=== PATIENT | female | born 1960 | race Caucasian/White ===

== ENCOUNTER 2020-01-20 14:42 | Outpatient (CLI) | payer OTHER ==
--- NOTE | 2020-01-20 16:22 | RAD ---
TWO VIEWS OF THE LUMBAR SPINE: 01/20/20 HISTORY: Disability exam. FINDINGS: Five lumbar type vertebral bodies are present with intact pedicles on frontal imaging. There is disc space narrowing with degenerative end plate change as well as anterior and posterior osteophyte at L3 -4 and L4-5. Multilevel lower lumbar spine facet hypertrophic change. There is atherosclerotic calcif ication of the abdominal aorta. No displaced fracture seen. IMPRESSION: Multilevel lower lumbar spine degenerative change as detailed above. POS: [facility]
== END 2020-01-20 14:43 | disposition home or self-care (01) ==
LOC: BICRAD 14:42
PROVIDERS: ATTEND Internal Medicine
DX: Z02.71 Encounter for disability determination (principal); M47.816 Spondylosis without myelopathy or radiculopathy, lumbar region
CPT/HCPCS: 72100

== ENCOUNTER 2020-02-16 00:13 | Emergency (ER) | payer SELFPAY ==
[2020-02-16] MEDS ORDERED: Ketorolac Tromethamine 30 MG/ML VIAL ONE (00:51)
--- NOTE | 2020-02-16 08:50 | CT ---
PRELIMINARY REPORT/[facility]/EMERGENCY AFTER HOURS PROCEDURE: EXAM: CT Maxillofacial Without Intravenous Contrast. CLINICAL HISTORY: PT FELL AFTER SLIPPING ON WATER. PT DENIES LOC. PT'S RIGHT SIDE OF THE FACE IS VERY SWOLLEN, BLACK AN D BLUE. TECHNIQUE: Axial computed tomography images of the face without intravenous contrast. Sagittal and coronal refor mations performed. CONTRAST: Without COMPARISON: None provided. FINDINGS: BONES: Chronic appearing fracture of the right medial orbital wall/lamina papyracea with herniation of extra conal fat and deviation of the medial rectus muscle. The mandible is intact. Degenerative changes o f the cervical spine most pronounced at C5-6. SOFT TISSUES: Right periorbital soft tissue hematoma. Right pre-maxillary facial contusion/hematoma. SINUSES: Completely opacified right maxillary sinus with surrounding osteitis. Small air-fluid level in the l eft maxillary sinus with superimposed mucosal wall and osteitis. The nasal septum is missing. Opaci fication of the ethmoid sinuses. Mucosal wall thickening and hyperdense opacification of the sphenoi d sinuses. Postsurgical changes of the maxillary sinuses and nasal passageway ORBITS: The orbits are normal. No retrobulbar hematoma or mass. IMPRESSION: 1. Right periorbital and facial soft tissue hematoma. No retrobulbar hematoma or abnormal CT appear ance of the globe. 2. Chronic appearing fracture of the right medial orbital wall/lamina papyracea fracture with hernia tion of extraconal fat and medial deviation of the adjacent medial rectus muscle. Correlate for musc ular entrapment 3. Pansinus mucosal disease with complete opacification of the right maxillary sinus. Small amount of hyperdense material likely representing inspissated secretions or fungal disease with superimposed chronic sinusitis. 4. Postsurgical changes of the sinuses and nasal passageway. ELECTRONICALLY SIGNED BY: Satish Mix DO Feb 16, 2020 1:30:59 AM TECHNICAL ARTIST This report is intended for review by the ordering physician only, in accordance of law. If you recei ve this report in error, please call [facility] at [phone]. FINAL REPORT EMERGENT AFTER HOURS CT OF THE FACE WITHOUT CONTRAST: FINDINGS/IMPRESSION: I agree with the findings and impression given in the preliminary report per [facility] physici an. There is severe diffuse sinus disease. There appears to be remote dehiscence of the right media l orbital wall. No acute facial fracture is identified. POS: [facility]
== END 2020-02-16 02:02 | disposition home or self-care (01) ==
LOC: ERS 00:13
DX: S00.83XA Contusion of other part of head, initial encounter (principal); W01.0XXA Fall on same level from slipping, tripping and stumbling without subsequent striking against object, initial encounter
CPT/HCPCS: 70486; 96372; J1885

== ENCOUNTER 2020-10-07 04:02 | Emergency (ER) | payer OTHER, SELFPAY ==
[2020-10-07] MEDS ORDERED: Lidocaine 1% w/Epinephrine 1:100K 20 ML VIAL ONE (04:28)
[2020-10-07] MEDS ORDERED: Boostrix 0.5 ML (Tdap) VIAL ONE (04:30)
[2020-10-07] MEDS ORDERED: Bacitracin 1 PK ONE (06:15)
== END 2020-10-07 06:41 | disposition home or self-care (01) ==
LOC: ERS 04:02
DX: S62.633A Displaced fracture of distal phalanx of left middle finger, initial encounter for closed fracture (principal); S01.81XA Laceration without foreign body of other part of head, initial encounter; E78.00 Pure hypercholesterolemia, unspecified; I10 Essential (primary) hypertension; F17.210 Nicotine dependence, cigarettes, uncomplicated; Z23 Encounter for immunization; W01.198A Fall on same level from slipping, tripping and stumbling with subsequent striking against other object, initial encounter
CPT/HCPCS: 12013; 70450; 72125; 90471; 90715

== ENCOUNTER 2022-03-19 13:38 | Emergency (ER) | payer SELFPAY ==
[2022-03-19] MEDS ORDERED: Ketorolac Tromethamine 30 MG/ML VIAL ONE (15:23)
[2022-03-19] MEDS ORDERED: Acetaminophen/Codeine 30-300mg Tablet ONE (16:57)
[2022-03-19] MEDS ORDERED: predniSONE 20 MG TAB ONE (16:58)
== END 2022-03-19 17:02 | disposition home or self-care (01) ==
LOC: ERS 13:38
DX: M54.41 Lumbago with sciatica, right side (principal); I10 Essential (primary) hypertension; E78.5 Hyperlipidemia, unspecified; Z79.899 Other long term (current) drug therapy; F17.210 Nicotine dependence, cigarettes, uncomplicated
CPT/HCPCS: 72100; 72170; 72220; 96372; J1885; J7512

== ENCOUNTER 2022-08-16 14:20 | Outpatient (CLI) | payer OTHER | END 2022-08-16 14:21 | disposition home or self-care (01) | LOC: TBSIIMAG 14:20 | PROVIDERS: ATTEND Neurological Surgery | DX: M47.12 Other spondylosis with myelopathy, cervical region (principal); E04.1 Nontoxic single thyroid nodule; J34.89 Other specified disorders of nose and nasal sinuses | CPT/HCPCS: 72141 ==

== ENCOUNTER 2022-09-18 10:20 | Outpatient (CLI) | payer BC, OTHER ==
[~2022-09-18 10:20] MED LIST: Iopamidol 370 76% 100 ML VIAL ONE; Magnevist 469MG/ML 20 ML VIAL ONE
== END 2022-09-18 10:21 | disposition home or self-care (01) ==
LOC: CT 10:20
PROVIDERS: ATTEND Physician Assistant
DX: G95.9 Disease of spinal cord, unspecified (principal); M51.36 Other intervertebral disc degeneration, lumbar region; M51.37 Other intervertebral disc degeneration, lumbosacral region
CPT/HCPCS: 71260; 72158; 74177; 82565; A9579; Q9967

== ENCOUNTER 2022-10-07 09:09 | Day surgery (SDC) | payer BC ==
[2022-10-04 14:48] VITALS: BMI 23.2
[2022-10-07] MEDS ORDERED: Lidocaine 1% MPF 2 ML VIAL ONE (10:48)
[2022-10-07] MEDS ORDERED: CEFAZOLIN 2 GM VIAL ONE (10:48)
[2022-10-07] MEDS ORDERED: Sodium Chloride 0.9% 100 ML ONE (10:49)
[2022-10-07] MEDS ORDERED: Vancomycin 1 GM VIAL ONE (10:57)
[2022-10-07] MEDS ORDERED: Esmolol 100 MG/10 ML VIAL ONE (13:26)
[2022-10-07] MEDS ORDERED: Lidocaine 1% PF 5 ML VIAL ONE (13:26)
[2022-10-07] MEDS ORDERED: NEOSTIGMINE 3 MG/3 ML SYR 3 MG/3 ML SYRINGE ONE (13:26)
[2022-10-07] MEDS ORDERED: PHENYLEPHRINE-NS 100 MCG/ML 10 ML SYRINGE ONE (13:26)
[2022-10-07] MEDS ORDERED: Ondansetron PF 4 MG/2 ML Vial ONE (13:26)
[2022-10-07] MEDS ORDERED: Albuterol HFA (OR) 200 PUFF INH ONE ×2 (13:26→14:25)
[2022-10-07] MEDS ORDERED: Dexamethasone 20 MG/5 ML VIAL ONE (13:26)
[2022-10-07] MEDS ORDERED: PROPOFOL 200 MG/20 ML VIAL ONE (13:26)
[2022-10-07] MEDS ORDERED: Rocuronium Bromide 10 MG/ML (10ML VIAL) ONE (13:26)
[2022-10-07] MEDS ORDERED: Glycopyrrolate 0.2 MG/ML 5 ML SYRINGE ONE (13:26)
[2022-10-07] MEDS ORDERED: fentaNYL 50 mcg/mL 1 mL Vial ONE ×4 (13:27→14:36)
[2022-10-07] MEDS ORDERED: SUGAMMADEX SODIUM 200 MG/2 ML VIAL ONE (14:26)
[2022-10-07] MEDS ORDERED: HYDROmorphone 0.5 MG/0.5 ML SYRINGE ONE (14:50)
[2022-10-07] MEDS ORDERED: HYDROcodone/Acetaminophen 5/325 mg Tablet ONE (15:53)
== END 2022-10-07 17:05 | disposition home or self-care (01) ==
LOC: SDC 09:09
PROVIDERS: ATTEND Neurological Surgery
PROC: 01NB0ZZ Release Lumbar Nerve, Open Approach (ICD-10-PCS; principal; 2022-10-07)
DX: M48.062 Spinal stenosis, lumbar region with neurogenic claudication (principal); I10 Essential (primary) hypertension; E78.5 Hyperlipidemia, unspecified; F32.A Depression, unspecified
CPT/HCPCS: J1100; J1170; J2405; J2704; J3010; J3370; J3490

== ENCOUNTER 2022-12-06 14:11 | Outpatient (CLI) | payer BC | END 2022-12-06 14:12 | disposition home or self-care (01) | LOC: BICMAMMO 14:11 | PROVIDERS: ATTEND Student in an Organized Health Care Education/Training Program | DX: Z12.31 Encounter for screening mammogram for malignant neoplasm of breast (principal) | CPT/HCPCS: 77063; 77067 ==

== ENCOUNTER 2023-06-27 09:54 | Outpatient (CLI) | payer BC | END 2023-06-27 09:55 | disposition home or self-care (01) | LOC: SCSMRI 09:54 | PROVIDERS: ATTEND Neurological Surgery | DX: M48.062 Spinal stenosis, lumbar region with neurogenic claudication (principal); M47.816 Spondylosis without myelopathy or radiculopathy, lumbar region; M47.815 Spondylosis without myelopathy or radiculopathy, thoracolumbar region; M47.817 Spondylosis without myelopathy or radiculopathy, lumbosacral region; Z98.890 Other specified postprocedural states | CPT/HCPCS: 72158; 82565 ==

== ENCOUNTER 2024-03-26 09:08 | Outpatient (CLI) | payer BC | END 2024-03-26 09:09 | disposition home or self-care (01) | LOC: BICULT 09:08 | PROVIDERS: ATTEND Student in an Organized Health Care Education/Training Program | DX: R74.8 Abnormal levels of other serum enzymes (principal); K76.0 Fatty (change of) liver, not elsewhere classified | CPT/HCPCS: 76705 ==

== ENCOUNTER 2025-01-19 18:43 | Inpatient (IN) | payer MEDICARE ==
[2025-01-19] MEDS ORDERED: Ondansetron PF 4 MG/2 ML Vial ONE (20:35)
[2025-01-19 21:11] LABS: ALT (SGPT) 62 U/L (Less than 34); AST (SGOT) 103 U/L (11-34); Albumin 4.0 g/dL (3.1-4.5); Alkaline Phosphatase 180 U/L (40-110); Anion Gap 16 mmol/L (10-20); BUN (Urea Nitrogen) 7 mg/dL (9.8-20.1); Bilirubin, Total 0.4 mg/dL (0.3-1.2); Calc. Creatinine Clearance 0 mL/min (70-130); Calcium 8.9 mg/dL (7.8-10.44); Carbon Dioxide 23 mmol/L (23-31); Chloride 105 mmol/L (98-107); Globulin 3.2 g/dL (2.4-3.5); Glucose 115 mg/dL (80-115); INR-International Normal Ratio 1.1; PTT 29.4 sec (22.9-36.1); Potassium 2.9 mmol/L (3.5-5.1); Prothrombin Time 14.8 sec (12.0-14.7); Sodium 141 mmol/L (136-145)
[2025-01-19 21:32] LABS: #Basophils 0.05 10x3/uL (0.0-0.2); #Eosinophils 0.09 10x3/uL (0.0-0.7); #Monocytes 0.67 10x3/uL (0.11-0.59); #Neutrophils 7.03 10x3/uL (1.40-6.50); %Basophils 0.5 % (0.0-1.0); %Eosinophils 0.9 % (0.0-10.0); %Lymphocytes 20.4 % (21.0-51.0); %Monocytes 6.7 % (0.0-10.0); %Neutrophils 70.7 % (42.0-75.0); Hematocrit 36.4 % (36.0-47.0); Hemoglobin 12.8 g/dL (12.0-16.0); Mean Corpuscular Hemoglobin 36.3 pg (27.0-31.0); Mean Corpuscular Volume 103.1 fL (78.0-98.0); Platelet Count 230 10x3/uL (130-400); Red Blood Cell (RBC) Count 3.53 mill/uL (4.20-5.40); White Blood Cell (WBC) Count 9.95 10x3/uL (4.8-10.8)
[2025-01-19] MEDS ORDERED: hydrALAZINE 20 MG/ML VIAL SLOW IVP PRN ×2 (21:34→22:26)
[2025-01-19] MEDS ORDERED: Ondansetron PF 4 MG/2 ML Vial IVP PRN (21:34)
[2025-01-19] MEDS ORDERED: Potassium Chloride 20 MEQ (100 mL) BAG ONE (21:45)
[2025-01-19] MEDS ORDERED: Electrolyte Replacement Protocol 1 EACH FS PRN (22:00)
[2025-01-19 22:06] LABS: Magnesium 1.2 mg/dL (1.6-2.6)
[2025-01-20 04:15] LABS: #Basophils 0.04 10x3/uL (0.0-0.2); #Eosinophils 0.06 10x3/uL (0.0-0.7); #Monocytes 0.78 10x3/uL (0.11-0.59); #Neutrophils 9.11 10x3/uL (1.40-6.50); %Basophils 0.3 % (0.0-1.0); %Eosinophils 0.5 % (0.0-10.0); %Lymphocytes 14.7 % (21.0-51.0); %Monocytes 6.6 % (0.0-10.0); %Neutrophils 77.5 % (42.0-75.0); Hematocrit 35.3 % (36.0-47.0); Hemoglobin 11.7 g/dL (12.0-16.0); Mean Corpuscular Hemoglobin 35.6 pg (27.0-31.0); Mean Corpuscular Volume 107.3 fL (78.0-98.0); Platelet Count 225 10x3/uL (130-400); Red Blood Cell (RBC) Count 3.29 mill/uL (4.20-5.40); White Blood Cell (WBC) Count 11.77 10x3/uL (4.8-10.8)
[2025-01-20] MEDS: Potassium Chloride 20 MEQ in Premix 1 BAG IVPB SCH (04:19)
[2025-01-20] MEDS: Magnesium Sulfate In Water 4 GM in Premix 1 BAG IVPB SCH (04:20)
[2025-01-20 04:32] LABS: Anion Gap 13 mmol/L (10-20); BUN (Urea Nitrogen) 7 mg/dL (9.8-20.1); Calc. Creatinine Clearance 132 mL/min (70-130); Calcium 8.0 mg/dL (7.8-10.44); Carbon Dioxide 24 mmol/L (23-31); Chloride 107 mmol/L (98-107); Glucose 104 mg/dL (80-115); Potassium 3.1 mmol/L (3.5-5.1); Sodium 141 mmol/L (136-145)
[2025-01-20 04:33] LABS: ALT (SGPT) 56 U/L (Less than 34); AST (SGOT) 81 U/L (11-34); Albumin 3.6 g/dL (3.1-4.5); Alkaline Phosphatase 154 U/L (40-110); Bilirubin, Direct 0.3 mg/dL (0.1-0.3); Bilirubin, Total 0.5 mg/dL (0.3-1.2)
[2025-01-20] MEDS: Pantoprazole 40 MG VIAL IVP SCH (07:34)
[2025-01-20] MEDS: Acetaminophen 325 MG TAB PO PRN (07:42)
[2025-01-20 13:51] LABS: Potassium 3.6 mmol/L (3.5-5.1)
[2025-01-20] MEDS: HYDROcodone/Acetaminophen 5/325 mg Tablet PO PRN (16:57)
[2025-01-20] MEDS: Acetaminophen/Codeine 30-300mg Tablet PO PRN (19:56)
[2025-01-20] MEDS: Losartan 25 MG TAB PO SCH (20:01)
[2025-01-21] MEDS: Sertraline 25 MG TAB PO SCH (09:07)
[2025-01-21] MEDS: Pantoprazole 40 MG DR.TAB PO SCH (09:08)
[2025-01-21] MEDS: Senokot S 8.6-50 MG TAB PO SCH (09:08)
[2025-01-21 12:25] LABS: #Basophils 0.03 10x3/uL (0.0-0.2); #Eosinophils 0.14 10x3/uL (0.0-0.7); #Monocytes 0.66 10x3/uL (0.11-0.59); #Neutrophils 4.92 10x3/uL (1.40-6.50); %Basophils 0.4 % (0.0-1.0); %Eosinophils 1.9 % (0.0-10.0); %Lymphocytes 22.2 % (21.0-51.0); %Monocytes 8.9 % (0.0-10.0); %Neutrophils 66.2 % (42.0-75.0); Hematocrit 35.0 % (36.0-47.0); Hemoglobin 11.6 g/dL (12.0-16.0); Mean Corpuscular Hemoglobin 36.4 pg (27.0-31.0); Mean Corpuscular Volume 109.7 fL (78.0-98.0); Platelet Count 190 10x3/uL (130-400); Red Blood Cell (RBC) Count 3.19 mill/uL (4.20-5.40); White Blood Cell (WBC) Count 7.43 10x3/uL (4.8-10.8)
[2025-01-21 12:55] LABS: Anion Gap 12 mmol/L (10-20); BUN (Urea Nitrogen) Less than 4 mg/dL (9.8-20.1); Calc. Creatinine Clearance 135 mL/min (70-130); Calcium 8.6 mg/dL (7.8-10.44); Carbon Dioxide 26 mmol/L (23-31); Chloride 106 mmol/L (98-107); Glucose 114 mg/dL (80-115); Potassium 3.3 mmol/L (3.5-5.1); Sodium 141 mmol/L (136-145)
[2025-01-21] MEDS: Methocarbamol 500 MG TAB PO PRN (17:52)
[2025-01-21 18:23] LABS: Potassium 3.8 mmol/L (3.5-5.1)
[2025-01-21] MEDS: Transdermal Patch Removal TOP SCH (21:01)
[2025-01-22 05:02] LABS: #Basophils 0.04 10x3/uL (0.0-0.2); #Eosinophils 0.10 10x3/uL (0.0-0.7); #Monocytes 0.59 10x3/uL (0.11-0.59); #Neutrophils 5.89 10x3/uL (1.40-6.50); %Basophils 0.5 % (0.0-1.0); %Eosinophils 1.2 % (0.0-10.0); %Lymphocytes 19.8 % (21.0-51.0); %Monocytes 7.1 % (0.0-10.0); %Neutrophils 70.9 % (42.0-75.0); Hematocrit 35.4 % (36.0-47.0); Hemoglobin 11.2 g/dL (12.0-16.0); Mean Corpuscular Hemoglobin 34.7 pg (27.0-31.0); Mean Corpuscular Volume 109.6 fL (78.0-98.0); Platelet Count 202 10x3/uL (130-400); Red Blood Cell (RBC) Count 3.23 mill/uL (4.20-5.40); White Blood Cell (WBC) Count 8.30 10x3/uL (4.8-10.8)
[2025-01-22 05:18] LABS: Anion Gap 16 mmol/L (10-20); BUN (Urea Nitrogen) Less than 4 mg/dL (9.8-20.1); Calc. Creatinine Clearance 130 mL/min (70-130); Calcium 9.0 mg/dL (7.8-10.44); Carbon Dioxide 24 mmol/L (23-31); Chloride 106 mmol/L (98-107); Glucose 103 mg/dL (80-115); Potassium 3.4 mmol/L (3.5-5.1); Sodium 143 mmol/L (136-145)
[2025-01-22 05:29] VITALS: BMI 27.8
[2025-01-22 16:14] VITALS: BP 137/81; TEMP 97.7
== END 2025-01-22 19:26 | disposition home or self-care (01) | DRG 87 ==
LOC: ERS 18:43 → CCU 21:38 → 2SE 01-20 15:51
PROVIDERS: ADMIT Surgery; ATTEND Surgery
DX: S06.5X1A Traumatic subdural hemorrhage with loss of consciousness of 30 minutes or less, initial encounter (principal); I10 Essential (primary) hypertension; S02.119A Unspecified fracture of occiput, initial encounter for closed fracture; E78.5 Hyperlipidemia, unspecified; R40.2412 Glasgow coma scale score 13-15, at arrival to emergency department; J44.9 Chronic obstructive pulmonary disease, unspecified; E87.6 Hypokalemia; R74.01 Elevation of levels of liver transaminase levels; Z98.890 Other specified postprocedural states; Z98.891 History of uterine scar from previous surgery; Z79.899 Other long term (current) drug therapy; Z90.710 Acquired absence of both cervix and uterus; F17.210 Nicotine dependence, cigarettes, uncomplicated; Z79.52 Long term (current) use of systemic steroids
CPT/HCPCS: 36415; 70450; 71045; 72125; 80048; 80053; 80076; 83735; 84484; 85025; 85610; 85730; 86850; 86900; 86901; 93005; 93010; 94640; 96374; 96375; 96376; J2270; J2405; J2470; J3010; J3475; J3480

== ENCOUNTER 2025-02-08 11:08 | Outpatient (CLI) | payer MEDICARE, BC | END 2025-02-08 11:09 | disposition home or self-care (01) | LOC: BICCT 11:08 | PROVIDERS: ATTEND Neurological Surgery | DX: I60.9 Nontraumatic subarachnoid hemorrhage, unspecified (principal) | CPT/HCPCS: 70450 ==